=== PATIENT | female | born 1965 | race Caucasian/White ===

== ENCOUNTER 2016-09-21 16:41 | Emergency (ER) | payer OTHER ==
[~2016-09-21] VITALS: Ht 157.5 cm; Wt 129.3 kg
[~2016-09-21 16:41] MED LIST: ASPI32ECTA PO; ATOR1TAB18 PO; CORE12.5 PO; ELIQ5TAB PO; FERR32TA PO; INSUDET SC; LISI10TA4 PO; MACR100C3 PO; MAPA325T2 PO; METF500T PO; NITR4TASL SL; OMEPRAZOLE DR PO; VITA500C10 PO
[2016-09-21] MEDS ORDERED: MORPHINE 10 MG/ML 1ML VIAL IM ONE (18:30)
[2016-09-21] MEDS ORDERED: ADACEL/BOOSTRIX VACCINE (DIPHTH/PERTUSS/ACELL/TETANUS)0.5ML SYR (90715) IM ONE (18:30)
[2016-09-21] MEDS ORDERED: LIDOCAINE 1% MDV 20ML VIAL SC ONE (18:45)
[2016-09-21] MEDS ORDERED: DERMABOND TOPICAL SKIN ADHESIVE TOP ONE (19:00)
[2016-09-21 19:24] VITALS: BP 188/86
== END 2016-09-21 19:30 | disposition home or self-care (01) ==
LOC: M ED 17:44
DX: S61.216A Laceration without foreign body of right little finger without damage to nail, initial encounter (principal); W26.0XXA Contact with knife, initial encounter; Y92.098 Other place in other non-institutional residence as the place of occurrence of the external cause; Y93.89 Activity, other specified; Y99.8 Other external cause status; E11.9 Type 2 diabetes mellitus without complications; I10 Essential (primary) hypertension; E78.00 Pure hypercholesterolemia, unspecified; K21.9 Gastro-esophageal reflux disease without esophagitis; Z87.891 Personal history of nicotine dependence; Z88.8 Allergy status to other drugs, medicaments and biological substances; Z79.899 Other long term (current) drug therapy; Z79.82 Long term (current) use of aspirin; Z79.84 Long term (current) use of oral hypoglycemic drugs

== ENCOUNTER 2017-09-07 16:30 | Emergency (ER) | payer MEDICAID, OTHER ==
[2017-09-07] MEDS: NITROGLYCERIN 0.4 MG SUBL TABLET SL ×6 (17:06→17:19)
[2017-09-07] MEDS: ONDANSETRON 4MG/2ML VIAL (J2405) IV ×2 (17:07)
[2017-09-07 17:12] LABS: BASO # 0.1 10^3/uL (0.0-0.2); BASO % 0.5 % (0.0-1.0); EOS # 0.1 10^3/uL (0.0-0.50); EOS % 0.6 % (0.0-3.0); HEMATOCRIT 39.1 % (36.0-47.0); HEMOGLOBIN 13.9 g/dl (12.0-16.0); IMMATURE GRANULOCYTE % 0.4 % (0-3.0); LYMPH # 1.6 10^3/uL (1.5-4.5); LYMPH % 11.3 % (24.0-44.0); MEAN CORPUSCULAR HEMOGLOBIN 31.6 pg (27.0-33.0); MEAN CORPUSCULAR HGB CONC 35.5 g/dl (32.0-36.5); MEAN CORPUSCULAR VOLUME 88.9 fl (80.0-96.0); MONO # 0.7 10^3/uL (0.0-0.8); MONO % 5.2 % (0.0-5.0); NEUTROPHILS # 11.7 10^3/uL (1.8-7.7); PLATELET COUNT, AUTOMATED 175 10^3/uL (150-450); RED CELL DISTRIBUTION WIDTH 12.2 % (11.5-14.5); WHITE BLOOD COUNT 14.3 10^3/uL (4.0-10.0)
[2017-09-07 17:22] LABS: PROTHROMBIN TIME 13.3 SECONDS (12.4-14.5)
[2017-09-07] MEDS ORDERED: GI COCKTAIL 50ML BTL(HYOSCYAMINE/MAALOX/LIDOCAINE VISCOUS)(1:3:1) As Ordered ×2 (17:26)
[2017-09-07] MEDS: GI COCKTAIL 50ML BTL(HYOSCYAMINE/MAALOX/LIDOCAINE VISCOUS)(1:3:1) PO ×2 (17:28)
[2017-09-07 17:31] LABS: ALBUMIN 3.5 GM/DL (3.2-5.2); ALKALINE PHOSPHATASE 104 U/L (45-117); ALT/SGPT 27 U/L (12-78); ANION GAP 8 MEQ/L (8-16); AST/SGOT 7 U/L (7-37); BILIRUBIN,DIRECT < 0.1 MG/DL (0.0-0.2); BILIRUBIN,TOTAL 0.4 MG/DL (0.2-1.0); BLOOD UREA NITROGEN 18 MG/DL (7-18); CALCIUM LEVEL 8.6 MG/DL (8.5-10.1); CARBON DIOXIDE LEVEL 26 MEQ/L (21-32); CHLORIDE LEVEL 100 MEQ/L (98-107); CPK CREATINE PHOSPHOKINASE 97 U/L (26-192); GLOMERULAR FILTRATION RATE > 60.0 (>51); POTASSIUM SERUM 3.7 MEQ/L (3.5-5.1); SODIUM LEVEL 134 MEQ/L (136-145); TROPONIN I < 0.02 NG/ML (< 0.10)
[2017-09-07 17:37] LABS: CK-MB VALUE MASS 2.5 NG/ML (0.0-3.6); MB/CK RELATIVE INDEX 2.57 (< OR =4); NT-PRO BNP 515 PG/ML (<125)
[2017-09-07 17:46] LABS: GLUCOSE, FASTING 406 MG/DL (70-100)
[2017-09-07] MEDS: NS 1,000 ML IV ×2 (18:00)
[2017-09-07] MEDS ORDERED: ISOVUE-370 76% 100ML VIAL (Q9967) As Ordered ×2 (18:04)
[2017-09-07] MEDS: MORPHINE 4 MG/ML 1ML VIAL (J2270) IV ×4 (18:09→19:09)
[2017-09-07 21:13] LABS: CK-MB VALUE MASS 1.6 NG/ML (0.0-3.6); CPK CREATINE PHOSPHOKINASE 84 U/L (26-192); TROPONIN I < 0.02 NG/ML (< 0.10)
[2017-09-07 23:34] LABS: CK-MB VALUE MASS 1.4 NG/ML (0.0-3.6); CPK CREATINE PHOSPHOKINASE 81 U/L (26-192); MB/CK RELATIVE INDEX 1.72 (< OR =4); TROPONIN I < 0.02 NG/ML (< 0.10)
== END 2017-09-08 00:25 | disposition home or self-care (01) ==
LOC: M ED 09-08 00:25
DX: R07.89 Other chest pain (principal); R06.02 Shortness of breath; E11.9 Type 2 diabetes mellitus without complications; I10 Essential (primary) hypertension; I25.10 Atherosclerotic heart disease of native coronary artery without angina pectoris; E78.5 Hyperlipidemia, unspecified; I25.2 Old myocardial infarction; Z82.49 Family history of ischemic heart disease and other diseases of the circulatory system; Z86.711 Personal history of pulmonary embolism; Z79.899 Other long term (current) drug therapy; Z79.84 Long term (current) use of oral hypoglycemic drugs; Z79.82 Long term (current) use of aspirin; Z88.8 Allergy status to other drugs, medicaments and biological substances; Z87.891 Personal history of nicotine dependence
CPT/HCPCS: J2270

== ENCOUNTER 2017-09-12 12:12 | Emergency (ER) | payer OTHER, MEDICAID | END 2017-09-12 15:48 | disposition home or self-care (01) | LOC: M ED 12:12 | DX: J02.8 Acute pharyngitis due to other specified organisms (principal); H10.023 Other mucopurulent conjunctivitis, bilateral; H92.02 Otalgia, left ear; E11.9 Type 2 diabetes mellitus without complications; I10 Essential (primary) hypertension; Z95.1 Presence of aortocoronary bypass graft; Z87.891 Personal history of nicotine dependence; Z88.8 Allergy status to other drugs, medicaments and biological substances; Z79.899 Other long term (current) drug therapy; Z79.82 Long term (current) use of aspirin; Z79.84 Long term (current) use of oral hypoglycemic drugs | CPT/HCPCS: 87880 ==

== ENCOUNTER 2018-04-09 13:02 | Emergency (ER) | payer OTHER ==
[2018-04-09 13:30] LABS: BASO # 0.1 10^3/uL (0.0-0.2); EOS # 0.2 10^3/uL (0.0-0.50); EOS % 2.1 % (0.0-3.0); HEMATOCRIT 40.5 % (36.0-47.0); HEMOGLOBIN 13.8 g/dl (12.0-15.5); IMMATURE GRANULOCYTE % 0.4 % (0-3.0); LYMPH # 1.9 10^3/uL (1.5-4.5); LYMPH % 20.9 % (24.0-44.0); MEAN CORPUSCULAR HGB CONC 34.1 g/dl (32.0-36.5); MONO # 0.6 10^3/uL (0.0-0.8); NEUTROPHILS # 6.4 10^3/uL (1.8-7.7); NEUTROPHILS % 69.6 % (36.0-66.0); PLATELET COUNT, AUTOMATED 194 10^3/uL (150-450); RED BLOOD COUNT 4.31 10^6/uL (4.00-5.40); RED CELL DISTRIBUTION WIDTH 12.4 % (11.5-14.5); WHITE BLOOD COUNT 9.2 10^3/uL (4.0-10.0)
[2018-04-09 13:54] LABS: ANION GAP 7 MEQ/L (8-16); BLOOD UREA NITROGEN 20 MG/DL (7-18); CARBON DIOXIDE LEVEL 28 MEQ/L (21-32); CHLORIDE LEVEL 102 MEQ/L (98-107); CPK CREATINE PHOSPHOKINASE 103 U/L (26-192); CREATININE FOR GFR 0.82 MG/DL (0.55-1.30); GLOMERULAR FILTRATION RATE > 60.0 (>51); GLUCOSE, FASTING 342 MG/DL (70-100); MB/CK RELATIVE INDEX 2.72 (< OR =4); POTASSIUM SERUM 4.1 MEQ/L (3.5-5.1); SODIUM LEVEL 137 MEQ/L (136-145); TROPONIN I < 0.02 NG/ML (< 0.10)
[2018-04-09] MEDS: ASPIRIN 325 MG TAB PO (14:04)
[2018-04-09] MEDS: GI COCKTAIL 50ML BTL(HYOSCYAMINE/MAALOX/LIDOCAINE VISCOUS)(1:3:1) PO (14:04)
== END 2018-04-09 14:46 | disposition home or self-care (01) ==
LOC: M ED 13:02
DX: R09.1 Pleurisy (principal); I51.9 Heart disease, unspecified; E11.9 Type 2 diabetes mellitus without complications; I10 Essential (primary) hypertension; E78.5 Hyperlipidemia, unspecified; Z95.1 Presence of aortocoronary bypass graft; Z87.891 Personal history of nicotine dependence; Z82.49 Family history of ischemic heart disease and other diseases of the circulatory system; I51.7 Cardiomegaly; Z98.890 Other specified postprocedural states; Z79.82 Long term (current) use of aspirin; Z79.84 Long term (current) use of oral hypoglycemic drugs; Z79.899 Other long term (current) drug therapy; Z88.6 Allergy status to analgesic agent; Z88.8 Allergy status to other drugs, medicaments and biological substances
CPT/HCPCS: 71045

== ENCOUNTER → 2018-04-09 | Outpatient (REF) | payer OTHER, MEDICAID ==
[2018-04-09 14:34] LABS: APPEARANCE, URINE HAZY (CLEAR); BACTERIA, URINE AUTO 1+ (NEGATIVE); BILIRUBIN, URINE AUTO NEGATIVE (NEGATIVE); BLOOD, URINE BLOOD 1+ (NEGATIVE); COLOR, URINE YELLOW (YELLOW); GLUCOSE, URINE (UA) AUTO 3+ mg/dL (NEGATIVE); KETONE, URINE AUTO NEGATIVE (NEGATIVE); LEUKOCYTE ESTERASE, URINE AUTO 2+ (NEGATIVE); NITRITE, URINE AUTO NEGATIVE (NEGATIVE); PROTEIN, URINE AUTO NEGATIVE (NEGATIVE); RBC, URINE AUTO 1 /HPF (0-3); SPECIFIC GRAVITY URINE AUTO 1.024 (1.002-1.035); SQUAMOUS EPITHELIAL CELL UR AU 2 /HPF (0-6); UROBILINOGEN, URINE AUTO 0.2 mg/dL (0.0-2.0); WBC, URINE AUTO TNTC /HPF (0-3)
[2018-04-09 18:25] LABS: CHLAMYDIA DNA AMPLIFICATION NEGATIVE (NEGATIVE); GC DNA AMPLIFICATION NEGATIVE (NEGATIVE)
== END ==
LOC: M LAB REF 13:33
DX: R30.0 Dysuria (principal)
CPT/HCPCS: 81001

== ENCOUNTER → 2018-04-09 | Outpatient (REF) | payer OTHER, MEDICAID ==
[2018-04-09 14:44] LABS: ESTIMATED AVERAGE GLUCOSE 260 MG/DL (60-110); HEMOGLOBIN A1c 10.7 %
[2018-04-09 15:23] LABS: ALBUMIN 3.6 GM/DL (3.2-5.2); ALBUMIN/GLOBULIN RATIO 1.09 (1.00-1.93); ALKALINE PHOSPHATASE 115 U/L (45-117); ALT/SGPT 28 U/L (12-78); ANION GAP 9 MEQ/L (8-16); AST/SGOT 14 U/L (7-37); BILIRUBIN,TOTAL 0.5 MG/DL (0.2-1.0); BLOOD UREA NITROGEN 23 MG/DL (7-18); CARBON DIOXIDE LEVEL 26 MEQ/L (21-32); CHLORIDE LEVEL 101 MEQ/L (98-107); CHOLESTEROL LEVEL 150 MG/DL (<200); CHOLESTEROL RISK RATIO 4.687 (<5); GLOMERULAR FILTRATION RATE > 60.0 (>51); GLUCOSE, FASTING 385 MG/DL (70-100); HDL CHOLESTEROL 32 MG/DL (>40); LDL CHOLESTEROL 66 MG/DL (<100); NON-HDL-C 118 MG/DL; POTASSIUM SERUM 4.7 MEQ/L (3.5-5.1); SODIUM LEVEL 136 MEQ/L (136-145); TOTAL PROTEIN 6.9 GM/DL (6.4-8.2); TRIGLYCERIDES LEVEL 258 MG/DL (<150)
== END ==
LOC: M LAB REF 13:40
DX: E11.65 Type 2 diabetes mellitus with hyperglycemia (principal); B37.2 Candidiasis of skin and nail; B37.3 Candidiasis of vulva and vagina

== ENCOUNTER → 2018-09-05 | Outpatient (REF) | payer OTHER, MEDICAID ==
[~2018-09-05] MED LIST changes: +ASPI325T25 PO; -ASPI32ECTA PO; -ATOR1TAB18 PO; +ATOR80TA59 PO; +ERYT5OPO OU; +FLON1SPR; -MACR100C3 PO; +MACR100C43 PO; -METF500T PO; +METF500T13 PO; +NAPR-50 PO; +NEUR300C PO
[2018-09-05 13:48] LABS: INFLUENZA A AMPLIFICATION NEGATIVE (NEGATIVE); INFLUENZA B AMPLIFICATION NEGATIVE (NEGATIVE)
== END ==
LOC: M LAB REF 12:58
PROVIDERS: ATTEND Physician Assistant
DX: J11.1 Influenza due to unidentified influenza virus with other respiratory manifestations (principal)

== ENCOUNTER 2018-09-11 19:49 | Emergency (ER) | payer MEDICAID, OTHER ==
[~2018-09-11] VITALS: Ht 157.5 cm; Wt 118.6 kg
[2018-09-11 20:28] LABS: HEMATOCRIT 43.2 % (36.0-47.0); MEAN CORPUSCULAR HEMOGLOBIN 31.7 pg (27.0-33.0); MEAN CORPUSCULAR HGB CONC 34.7 g/dl (32.0-36.5); MEAN CORPUSCULAR VOLUME 91.3 fl (80.0-96.0); PLATELET COUNT, AUTOMATED 189 10^3/uL (150-450); RED BLOOD COUNT 4.73 10^6/uL (4.00-5.40); WHITE BLOOD COUNT 7.8 10^3/uL (4.0-10.0)
[2018-09-11] MEDS ORDERED: MORPHINE 2 MG/ML 1ML SYRINGE (J2270) IV PRN (20:30)
[2018-09-11 20:53] LABS: ATYPICAL LYMPH 2 % (0-5); EOSINOPHILS 1 % (0-5); LYMPHOCYTES 30 % (16-52); MONOCYTES 11 % (0-8); NEUTROPHILS 56 % (35-75); PLATELET ESTIMATE NORMAL (NORMAL)
[2018-09-11 21:05] LABS: INFLUENZA A AMPLIFICATION NEGATIVE (NEGATIVE); INFLUENZA B AMPLIFICATION NEGATIVE (NEGATIVE)
[2018-09-11 21:06] LABS: ALBUMIN 3.6 GM/DL (3.2-5.2); ALT/SGPT 33 U/L (12-78); BILIRUBIN,DIRECT < 0.1 MG/DL (0.0-0.2); BILIRUBIN,TOTAL 0.4 MG/DL (0.2-1.0); BLOOD UREA NITROGEN 20 MG/DL (7-18); CALCIUM LEVEL 8.9 MG/DL (8.5-10.1); CARBON DIOXIDE LEVEL 29 MEQ/L (21-32); CHLORIDE LEVEL 101 MEQ/L (98-107); CPK CREATINE PHOSPHOKINASE 82 U/L (26-192); CREATININE FOR GFR 0.76 MG/DL (0.55-1.30); GLOMERULAR FILTRATION RATE > 60.0 (>51); GLUCOSE, FASTING 245 MG/DL (70-100); MB/CK RELATIVE INDEX 2.56 (< OR =4); POTASSIUM SERUM 4.1 MEQ/L (3.5-5.1); SODIUM LEVEL 137 MEQ/L (136-145); TOTAL PROTEIN 7.1 GM/DL (6.4-8.2); TROPONIN I < 0.02 NG/ML (< 0.10)
--- NOTE | 2018-09-11 21:10 | REP ---
Clinical: Acute chest pain. Technique: PA and lateral. Comparison: 04/09/2018. Findings: Subtle lingular opacity suggests atelectasis/early infiltrate. Remainder of lung swift are clear. No effusion. No pneumothorax. Mediastinum and cardiac silhouette are stable. Impression: Subtle lingular opacity suggests atelectasis/early infiltrate. Electronically Signed by Girish Zaldivar MD 09/11/2018 09:01 P
[2018-09-11] MEDS ORDERED: AZITHROMYCIN 250 MG TAB PO ONE (22:00)
[2018-09-11] MEDS ORDERED: cefTRIAXone SOD 1 GM in D5W MINI-BAG PLUS 50 ML IV ONE (22:00)
[2018-09-11] MEDS ORDERED: KETOROLAC 30 MG/ML VIAL (J1885) IV ONE (22:00)
[2018-09-11] MEDS ORDERED: AZIT-12 PO (23:22)
[2018-09-11] MEDS ORDERED: CEFD300CAP PO (23:22)
[2018-09-11] MEDS ORDERED: IBUP-1114 PO (23:22)
[2018-09-11 23:50] VITALS: BP 162/73
--- NOTE | 2018-09-12 20:45 | ECGEPIP ---
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
== END 2018-09-11 23:58 | disposition home or self-care (01) ==
LOC: M ED 19:49
DX: J18.9 Pneumonia, unspecified organism (principal); R11.0 Nausea; I11.9 Hypertensive heart disease without heart failure; E78.5 Hyperlipidemia, unspecified; E11.9 Type 2 diabetes mellitus without complications; Z95.1 Presence of aortocoronary bypass graft; Z87.891 Personal history of nicotine dependence; Z88.8 Allergy status to other drugs, medicaments and biological substances; Z79.899 Other long term (current) drug therapy; Z79.82 Long term (current) use of aspirin; Z79.84 Long term (current) use of oral hypoglycemic drugs
CPT/HCPCS: 71046; 80048; 80076; 82550; 82553; 85025; 87502; 93005; 93041; 94760; 96374; 96375; 99285; J0696; J1885; J2270

== ENCOUNTER 2018-12-09 17:43 | Emergency (ER) | payer MEDICAID, OTHER, SELFPAY ==
[~2018-12-09] VITALS: Ht 157.5 cm; Wt 120.5 kg
[~2018-12-09 17:43] MED LIST changes: +ASPI-255 PO; -ASPI325T25 PO; +AZIT-12 PO; +CEFD300CAP PO; +ERYT1OIN26 OU; -ERYT5OPO OU; +IBUP-1114 PO; -NAPR-50 PO; +NAPR-837 PO
[2018-12-09] MEDS ORDERED: CIPROFLOXACIN 500 MG TAB PO ONE (19:30)
[2018-12-09] MEDS ORDERED: KETOROLAC TROMETHAMINE 10 MG TAB PO ONE (19:30)
[2018-12-09] MEDS ORDERED: FLUCONAZOLE 50MG TABLET PO ONE (19:30)
[2018-12-09] MEDS ORDERED: FLUC150T PO (19:33)
[2018-12-09] MEDS ORDERED: CIPR-249 PO (19:33)
[2018-12-09 19:43] VITALS: BP 150/78
== END 2018-12-09 19:45 | disposition home or self-care (01) ==
LOC: M ED 17:43
DX: N39.0 Urinary tract infection, site not specified (principal); J01.90 Acute sinusitis, unspecified; B37.3 Candidiasis of vulva and vagina; E11.9 Type 2 diabetes mellitus without complications; I25.2 Old myocardial infarction; I10 Essential (primary) hypertension; E78.5 Hyperlipidemia, unspecified; Z79.82 Long term (current) use of aspirin; Z79.84 Long term (current) use of oral hypoglycemic drugs; Z79.899 Other long term (current) drug therapy; Z88.8 Allergy status to other drugs, medicaments and biological substances

== ENCOUNTER 2022-09-25 17:08 | Emergency (ER) | payer MEDICAID, OTHER ==
[~2022-09-25] VITALS: Ht 157.5 cm; Wt 90.0 kg
[~2022-09-25 17:08] MED LIST changes: +CIPR-249 PO; -ERYT1OIN26 OU; +ERYT5OIN25 OU; +FLUC150T9 PO; +LISI10TA22 PO; -LISI10TA4 PO; -MAPA325T2 PO; +MAPA325T8 PO
[2022-09-25] MEDS ORDERED: GI COCKTAIL 50ML BTL(HYOSCYAMINE/MAALOX/LIDOCAINE VISCOUS)(1:3:1) PO ONE (17:35)
[2022-09-25 17:54] LABS: BASO # 0.1 10^3/uL (0.0-0.2); BASO % 0.7 % (0.0-1.0); EOS # 0.1 10^3/uL (0.0-0.5); EOS % 0.5 % (0.0-3.0); HEMATOCRIT 43.6 % (36.0-47.0); HEMOGLOBIN 14.9 g/dl (12.0-15.5); LYMPH # 2.2 10^3/uL (1.5-5.0); LYMPH % 19.1 % (24.0-44.0); MEAN CORPUSCULAR HEMOGLOBIN 31.6 pg (27.0-33.0); MEAN CORPUSCULAR HGB CONC 34.2 g/dl (32.0-36.5); MEAN CORPUSCULAR VOLUME 92.6 fl (80.0-96.0); MONO # 0.6 10^3/uL (0.0-0.8); MONO % 5.4 % (2.0-8.0); NEUTROPHILS # 8.5 10^3/uL (1.5-8.5); NEUTROPHILS % 73.9 % (36.0-66.0); PLATELET COUNT, AUTOMATED 194 10^3/uL (150-450); RED BLOOD COUNT 4.71 10^6/uL (4.00-5.40); WHITE BLOOD COUNT 11.6 10^3/uL (4.0-10.0)
[2022-09-25 18:05] LABS: INR 0.93; PROTHROMBIN TIME 12.7 SECONDS (12.5-14.5)
[2022-09-25 18:17] LABS: LIPASE 27 U/L (12-53)
[2022-09-25 18:19] LABS: CPK CREATINE PHOSPHOKINASE 79 U/L (34-145)
[2022-09-25 18:22] LABS: ALBUMIN 3.4 G/DL (3.2-5.2); ALKALINE PHOSPHATASE 102 U/L (46-116); ALT/SGPT 15 U/L (7.0-40); AST/SGOT 16 U/L (<34); BILIRUBIN,DIRECT < 0.1 MG/DL (<0.4); BILIRUBIN,TOTAL 0.4 MG/DL (0.3-1.2); BLOOD UREA NITROGEN 15 MG/DL (9-23); CALCIUM LEVEL 8.8 MG/DL (8.5-10.1); CARBON DIOXIDE LEVEL 26 MMOL/L (20-31); CHLORIDE LEVEL 103 MMOL/L (98-107); CK-MB VALUE MASS 3.1 NG/ML (<3.6); CREATININE FOR GFR 0.59 MG/DL (0.55-1.30); GLOMERULAR FILTRATION RATE > 60.0 (>51); GLUCOSE, FASTING 310 MG/DL (60-100); MB/CK RELATIVE INDEX 3.92 (< OR =4); SODIUM LEVEL 135 MMOL/L (136-145); TOTAL PROTEIN 6.5 G/DL (5.7-8.2)
[2022-09-25] MEDS ORDERED: HEPARIN SOD (PORCINE) 5000UNITS/ML 1ML VIAL/SYRINGE IV ONE (18:45)
[2022-09-25] MEDS ORDERED: HEPARIN DRIP 25,000 UNITS in IV 1 EA IV SCH (18:45)
[2022-09-25] MEDS ORDERED: NITROGLYCERIN 0.4MG SUBL TABLET SL PRN (18:45)
[2022-09-25 18:51] LABS: PARTIAL THROMBOPLASTIN TIME 25.6 SECONDS (24.8-34.2)
[2022-09-25] MEDS ORDERED: CLOPIDOGREL 300 MG TAB (PLAVIX) PO STA (19:01)
[2022-09-25 19:29] LABS: MB/CK RELATIVE INDEX 3.7 (< OR =4)
[2022-09-25 19:42] VITALS: BP 125/70
[2022-09-25 20:20] LABS: RSV AMPLIFICATION NEGATIVE (NEGATIVE)
== END 2022-09-25 19:59 | disposition short-term general hospital (02) ==
LOC: M ED 17:08
DX: I21.4 Non-ST elevation (NSTEMI) myocardial infarction (principal); R94.31 Abnormal electrocardiogram [ECG] [EKG]; I25.2 Old myocardial infarction; E11.9 Type 2 diabetes mellitus without complications; I10 Essential (primary) hypertension; F12.10 Cannabis abuse, uncomplicated; Z88.8 Allergy status to other drugs, medicaments and biological substances; Z79.02 Long term (current) use of antithrombotics/antiplatelets; Z79.811 Long term (current) use of aromatase inhibitors; Z79.4 Long term (current) use of insulin; Z79.899 Other long term (current) drug therapy
CPT/HCPCS: 71045; 80048; 80076; 82550; 82553; 83690; 85025; 85610; 85730; 87631; 93005; 93041; 94760; 96365; 96375; 99285; J1644

== ENCOUNTER → 2022-09-30 | Outpatient (REF) | payer OTHER ==
[2022-09-30 17:45] LABS: CREATININE, URINE 39.4 MG/DL
== END ==
LOC: M LAB REF 16:18
PROVIDERS: ATTEND Physician Assistant
DX: E11.65 Type 2 diabetes mellitus with hyperglycemia (principal); E11.41 Type 2 diabetes mellitus with diabetic mononeuropathy

== ENCOUNTER → 2022-10-05 | Outpatient (CLI) | payer OTHER | LOC: M RAD 09:42 | PROVIDERS: ATTEND Physician Assistant | DX: R23.0 Cyanosis (principal) ==

== ENCOUNTER → 2022-10-13 | Outpatient (CLI) | payer OTHER ==
[~2022-10-13] MED LIST changes: +GASTROGRAFIN SOLUTION 30ML As Ordered ONE
== END ==
LOC: M RAD 09:51
PROVIDERS: ATTEND Physician Assistant
DX: K43.9 Ventral hernia without obstruction or gangrene (principal)
CPT/HCPCS: 74177; Q9963

== ENCOUNTER 2023-09-13 11:46 | Emergency (ER) | payer OTHER ==
[~2023-09-13] VITALS: Ht 157.5 cm; Wt 87.2 kg
[~2023-09-13 11:46] MED LIST changes: -GASTROGRAFIN SOLUTION 30ML As Ordered ONE
[2023-09-13] MEDS ORDERED: LISI20TA33 PO (12:03)
[2023-09-13] MEDS ORDERED: ASPI-226 PO (12:03)
[2023-09-13 12:34] LABS: BASO # 0.1 10^3/uL (0.0-0.2); BASO % 0.7 % (0.0-1.0); EOS % 0.5 % (0.0-3.0); HEMATOCRIT 43.1 % (36.0-47.0); HEMOGLOBIN 14.9 g/dl (12.0-15.5); LYMPH # 1.7 10^3/uL (1.5-5.0); LYMPH % 21.6 % (24.0-44.0); MEAN CORPUSCULAR HEMOGLOBIN 32.3 pg (27.0-33.0); MEAN CORPUSCULAR HGB CONC 34.6 g/dl (32.0-36.5); MEAN CORPUSCULAR VOLUME 93.3 fl (80.0-96.0); MONO # 0.4 10^3/uL (0.0-0.8); MONO % 5.5 % (2.0-8.0); NEUTROPHILS # 5.8 10^3/uL (1.5-8.5); NEUTROPHILS % 71.6 % (36.0-66.0); PLATELET COUNT, AUTOMATED 187 10^3/uL (150-450); RED BLOOD COUNT 4.62 10^6/uL (4.00-5.40)
[2023-09-13 13:00] LABS: CK-MB VALUE MASS 1.6 NG/ML (<3.6)
[2023-09-13 13:01] LABS: BLOOD UREA NITROGEN 16 MG/DL (9-23); CALCIUM LEVEL 9.3 MG/DL (8.5-10.1); CARBON DIOXIDE LEVEL 30 MMOL/L (20-31); CHLORIDE LEVEL 106 MMOL/L (98-107); CPK CREATINE PHOSPHOKINASE 64 U/L (34-145); CREATININE FOR GFR 0.62 MG/DL (0.55-1.30); GLOMERULAR FILTRATION RATE > 60.0 (>51); GLUCOSE, FASTING 245 MG/DL (60-100); POTASSIUM SERUM 4.4 MMOL/L (3.5-5.1); SODIUM LEVEL 139 MMOL/L (136-145)
[2023-09-13 14:17] LABS: CK-MB VALUE MASS 1.5 NG/ML (<3.6)
[2023-09-13] MEDS ORDERED: BRIL90TA PO (14:38)
[2023-09-13] MEDS ORDERED: GABA-1171 PO (14:38)
[2023-09-13] MEDS ORDERED: METO1TAB32 PO (14:38)
[2023-09-13] MEDS ORDERED: OMEP-173 PO (14:38)
[2023-09-13] MEDS ORDERED: METF750T36 PO (14:38)
[2023-09-13 14:42] LABS: MB/CK RELATIVE INDEX 2.38 (< OR =4)
[2023-09-13] MEDS ORDERED: HOME MED LIST COMPLETE! XX SCH (15:00)
[2023-09-13] MEDS ORDERED: ISOVUE-370 76% 100ML VIAL As Ordered ONE (15:03)
[2023-09-13 16:16] VITALS: BP 154/65; TEMP 98.2; O2SAT 96
== END 2023-09-13 16:30 | disposition home or self-care (01) ==
LOC: EDBD 11:46 → M ED 11:46
DX: R07.9 Chest pain, unspecified (principal); I45.4 Nonspecific intraventricular block; E11.9 Type 2 diabetes mellitus without complications; I10 Essential (primary) hypertension; E78.5 Hyperlipidemia, unspecified; Z98.84 Bariatric surgery status; Z86.79 Personal history of other diseases of the circulatory system; Z88.8 Allergy status to other drugs, medicaments and biological substances; Z79.899 Other long term (current) drug therapy; Z79.02 Long term (current) use of antithrombotics/antiplatelets; Z79.82 Long term (current) use of aspirin; Z79.811 Long term (current) use of aromatase inhibitors; Z79.4 Long term (current) use of insulin; Z79.83 Long term (current) use of bisphosphonates
CPT/HCPCS: 36415; 71045; 71275; 80048; 82550; 82553; 83880; 85025; 93005; 93041; 94760; 99285; Q9967

== ENCOUNTER 2024-06-06 11:52 | Emergency (ER) | payer OTHER ==
[~2024-06-06] VITALS: Ht 157.5 cm; Wt 89.5 kg
[~2024-06-06 11:52] MED LIST changes: +ASPI-226 PO; +BRIL90TA PO; +GABA-1171 PO; +LISI20TA33 PO; +METF750T36 PO; +METO1TAB32 PO; +OMEP-173 PO
[2024-06-06 12:36] LABS: BASO # 0.1 10^3/uL (0.0-0.2); BASO % 0.5 % (0.0-1.0); EOS % 0.2 % (0.0-3.0); HEMATOCRIT 40.4 % (36.0-47.0); HEMOGLOBIN 13.8 g/dl (12.0-15.5); LYMPH # 1.5 10^3/uL (1.5-5.0); LYMPH % 15.5 % (24.0-44.0); MEAN CORPUSCULAR HGB CONC 34.2 g/dl (32.0-36.5); MEAN CORPUSCULAR VOLUME 93.7 fl (80.0-96.0); MONO # 0.6 10^3/uL (0.0-0.8); MONO % 6.5 % (2.0-8.0); NEUTROPHILS # 7.6 10^3/uL (1.5-8.5); NEUTROPHILS % 76.9 % (36.0-66.0); PLATELET COUNT, AUTOMATED 178 10^3/uL (150-450); RED BLOOD COUNT 4.31 10^6/uL (4.00-5.40); WHITE BLOOD COUNT 9.9 10^3/uL (4.0-10.0)
[2024-06-06 12:51] LABS: INR 1.04; PROTHROMBIN TIME 13.9 SECONDS (12.5-14.5)
[2024-06-06 13:03] LABS: CK-MB VALUE MASS < 1.0 NG/ML (<3.6)
[2024-06-06 13:05] LABS: ALKALINE PHOSPHATASE 113 U/L (35-104); ALT/SGPT 41 U/L (7.0-40); AST/SGOT 10 U/L (<34); BILIRUBIN,DIRECT 0.3 MG/DL (<0.4); BILIRUBIN,TOTAL 0.9 MG/DL (0.3-1.2); BLOOD UREA NITROGEN 11 MG/DL (9-23); CARBON DIOXIDE LEVEL 25 MMOL/L (20-31); CHLORIDE LEVEL 105 MMOL/L (98-107); CREATININE FOR GFR 0.58 MG/DL (0.55-1.30); GLOMERULAR FILTRATION RATE > 60.0 (>51); GLUCOSE, FASTING 304 MG/DL (60-100); SODIUM LEVEL 137 MMOL/L (136-145); TOTAL PROTEIN 6.5 G/DL (5.7-8.2)
[2024-06-06 13:07] LABS: CPK CREATINE PHOSPHOKINASE 39 U/L (34-145); MB/CK RELATIVE INDEX 2.56 (< OR =4)
[2024-06-06] MEDS ORDERED: ISOVUE-370 76% 100ML VIAL As Ordered ONE (13:24)
[2024-06-06] MEDS ORDERED: NITR0.4S14 SL (13:35)
[2024-06-06] MEDS ORDERED: HOME MED LIST COMPLETE! XX SCH (13:40)
[2024-06-06 14:22] LABS: CK-MB VALUE MASS 1.1 NG/ML (<3.6)
[2024-06-06 14:23] LABS: MB/CK RELATIVE INDEX 3.33 (< OR =4)
[2024-06-06 14:39] LABS: PARTIAL THROMBOPLASTIN TIME 28.3 SECONDS (24.8-34.2)
[2024-06-06 14:57] VITALS: BP 141/82
[2024-06-06] MEDS: ASPIRIN 81MG CHEW TABLET PO ONE (14:57)
[2024-06-06] MEDS: NITROGLYCERIN 2% OINT 1 GM *U/D* PKT TOP ONE (14:57)
[2024-06-06] MEDS: HEPARIN DRIP 25,000 UNITS in IV 1 EA IV SCH (16:00)
[2024-06-06] MEDS: HEPARIN SOD (PORCINE) 5000UNITS/ML 1ML VIAL/SYRINGE IV ONE (16:00)
[2024-06-06 17:04] VITALS: BP 120/74; TEMP 98.1; O2SAT 93
== END 2024-06-06 17:08 | disposition short-term general hospital (02) ==
LOC: M ED 11:52
DX: I20.0 Unstable angina (principal); I45.4 Nonspecific intraventricular block; E11.9 Type 2 diabetes mellitus without complications; I25.2 Old myocardial infarction; I10 Essential (primary) hypertension; J44.9 Chronic obstructive pulmonary disease, unspecified; E78.5 Hyperlipidemia, unspecified; Z88.8 Allergy status to other drugs, medicaments and biological substances; Z86.711 Personal history of pulmonary embolism; Z86.79 Personal history of other diseases of the circulatory system; Z87.891 Personal history of nicotine dependence; Z79.02 Long term (current) use of antithrombotics/antiplatelets; Z79.811 Long term (current) use of aromatase inhibitors; Z79.4 Long term (current) use of insulin; Z79.899 Other long term (current) drug therapy
CPT/HCPCS: 71045; 71275; 80048; 80076; 82550; 82553; 83880; 84484; 85025; 85610; 85730; 93005; 93041; 93971; 94760; 96374; 99285; Q9967

== ENCOUNTER 2024-07-17 15:24 | Emergency (ER) | payer OTHER ==
[~2024-07-17] VITALS: Ht 157.5 cm; Wt 86.7 kg
[~2024-07-17 15:24] MED LIST changes: +NITR0.4S14 SL
[2024-07-17] MEDS ORDERED: OXYC1TAB23 (15:49)
[2024-07-17] MEDS ORDERED: PANT40TA29 (15:49)
[2024-07-17] MEDS ORDERED: ISOS1TAB36 (15:49)
[2024-07-17] MEDS ORDERED: CARV6.25 (15:49)
[2024-07-17] MEDS ORDERED: LANTINJ4 (15:49)
[2024-07-17] MEDS ORDERED: SPIR-10 (15:49)
[2024-07-17] MEDS ORDERED: CLOP75TA2 (15:49)
[2024-07-17] MEDS ORDERED: ENTR1TAB (15:49)
[2024-07-17] MEDS ORDERED: FARX1TAB3 (15:49)
[2024-07-17 17:08] LABS: BASO # 0.1 10^3/uL (0.0-0.2); BASO % 0.7 % (0.0-1.0); EOS # 0.1 10^3/uL (0.0-0.5); EOS % 1.1 % (0.0-3.0); HEMATOCRIT 41.2 % (36.0-47.0); HEMOGLOBIN 13.9 g/dl (12.0-15.5); LYMPH # 1.8 10^3/uL (1.5-5.0); LYMPH % 16.8 % (24.0-44.0); MEAN CORPUSCULAR HEMOGLOBIN 30.8 pg (27.0-33.0); MEAN CORPUSCULAR HGB CONC 33.7 g/dl (32.0-36.5); MEAN CORPUSCULAR VOLUME 91.2 fl (80.0-96.0); MONO # 0.6 10^3/uL (0.0-0.8); MONO % 5.8 % (2.0-8.0); NEUTROPHILS # 7.9 10^3/uL (1.5-8.5); NEUTROPHILS % 74.4 % (36.0-66.0); PLATELET COUNT, AUTOMATED 208 10^3/uL (150-450); RED BLOOD COUNT 4.52 10^6/uL (4.00-5.40); WHITE BLOOD COUNT 10.6 10^3/uL (4.0-10.0)
[2024-07-17 17:14] LABS: ERYTHROCYTE SEDIMENTATION RATE 21 mm/hr (0-30)
[2024-07-17 17:34] LABS: BLOOD UREA NITROGEN 27 MG/DL (9-23); C REACTIVE PROTEIN QUANTITATIV 0.51 MG/DL (<1.0); CALCIUM LEVEL 9.7 MG/DL (8.5-10.1); CARBON DIOXIDE LEVEL 26 MMOL/L (20-31); CHLORIDE LEVEL 105 MMOL/L (98-107); CREATININE FOR GFR 0.64 MG/DL (0.55-1.30); GLOMERULAR FILTRATION RATE > 60.0 (>51); GLUCOSE, FASTING 177 MG/DL (60-100); POTASSIUM SERUM 4.2 MMOL/L (3.5-5.1); SODIUM LEVEL 139 MMOL/L (136-145)
[2024-07-17] MEDS: PIPERACILLIN/TAZOBACTAM SOD 3.375 GM in DEXTROSE 5% (D5W) ADV/MINI-BAG 50 ML IV ONE (20:16)
[2024-07-17] MEDS: VANCOMYCIN/WATER FOR INJ (PEG) 1,750 MG in IV 1 EA IV ONE (21:31)
[2024-07-17] MEDS ORDERED: DOXY-441 PO (22:02)
[2024-07-17] MEDS ORDERED: CIPR-249 PO (22:02)
[2024-07-17] MEDS: NORCO, ANEXSIA 5/325MG TABLET (HYDROcodone/ACETAMINOPHEN) PO ONE (22:37)
[2024-07-17 23:44] VITALS: BP 122/64; TEMP 97.6; O2SAT 98
== END 2024-07-18 00:08 | disposition home or self-care (01) ==
LOC: M ED 15:24
DX: L03.032 Cellulitis of left toe (principal); L97.529 Non-pressure chronic ulcer of other part of left foot with unspecified severity; I70.412 Atherosclerosis of autologous vein bypass graft(s) of the extremities with intermittent claudication, left leg; I10 Essential (primary) hypertension; K21.9 Gastro-esophageal reflux disease without esophagitis; E11.9 Type 2 diabetes mellitus without complications; E78.5 Hyperlipidemia, unspecified; Z88.8 Allergy status to other drugs, medicaments and biological substances; Z79.02 Long term (current) use of antithrombotics/antiplatelets; Z79.4 Long term (current) use of insulin; Z79.2 Long term (current) use of antibiotics; Z79.899 Other long term (current) drug therapy; Z86.79 Personal history of other diseases of the circulatory system; Z87.891 Personal history of nicotine dependence
CPT/HCPCS: 73660; 80048; 83605; 85025; 85652; 86140; 87040; 87070; 87077; 87186; 87205; 93971; 96374; 96375; 99284; J2543; J3372

== ENCOUNTER → 2025-04-07 | Outpatient (CLI) | payer OTHER ==
[~2025-04-07] MED LIST changes: +CARV6.25; +CLOP75TA2; +DOXY-441 PO; +ENTR1TAB; +FARX1TAB3; +ISOS1TAB36; +LANTINJ4; +OXYC1TAB23; +PANT40TA29; +SPIR-10
[2025-04-07 15:23] LABS: ALT/SGPT 32.0 U/L (7.0-40); AST/SGOT 17.0 U/L (<34); CALCIUM LEVEL 8.7 MG/DL (8.3-10.6); CARBON DIOXIDE LEVEL 28.0 MMOL/L (20-31); CHLORIDE LEVEL 103.0 MMOL/L (98-107); CREATININE FOR GFR 0.83 MG/DL (0.55-1.30); GLOMERULAR FILTRATION RATE 80.7 (>45); POTASSIUM SERUM 4.0 MMOL/L (3.5-5.1); SODIUM LEVEL 138.0 MMOL/L (136-145)
== END ==
LOC: M LAB 14:13
PROVIDERS: ATTEND Nurse Practitioner Acute Care
DX: I50.20 Unspecified systolic (congestive) heart failure (principal)

== ENCOUNTER 2025-07-06 15:41 | Inpatient (IN) | payer OTHER ==
[~2025-07-06] VITALS: Ht 157.5 cm; Wt 94.2 kg
[2025-07-06] VITALS (15 sets, daily range): BP systolic 94–132; BP diastolic 52–64; TEMP 97.9; O2SAT 88–99
[~2025-07-06 15:41] MED LIST changes: -CLOP75TA2; +CLOP75TA2 PO; -ENTR1TAB; +ENTR1TAB PO; -FARX1TAB3; +FARX1TAB3 PO; -LANTINJ4; +LANTINJ4 SC; -PANT40TA29; +PANT40TA29 PO
[2025-07-06] MEDS ORDERED: NS (Normal Saline) 0.9% 1,000 ML IV ONE (16:05)
[2025-07-06] MEDS: LIDOCAINE 2% 5 ML JELLY UROJET TOP ONE (16:05)
[2025-07-06 16:15] LABS: BASO # 0.0 10^3/uL (0.0-0.2); BASO % 0.3 % (0.0-1.0); EOS # 0.0 10^3/uL (0.0-0.5); EOS % 0.0 % (0.0-3.0); LYMPH # 0.4 10^3/uL (1.5-5.0); LYMPH % 3.9 % (24.0-44.0); MONO # 0.3 10^3/uL (0.0-0.8); MONO % 2.8 % (2.0-8.0); NEUTROPHILS # 9.8 10^3/uL (1.5-8.5); NEUTROPHILS % 92.6 % (36.0-66.0); PLATELET COUNT, AUTOMATED 158 10^3/uL (150-450)
[2025-07-06] MEDS: NS (Normal Saline) 0.9% 2,560 ML in IV 1 EA IV STA (16:22)
[2025-07-06] MEDS: ACETAMINOPHEN *IV* 1,000 MG in IV 1 EA IV ONE (16:26)
[2025-07-06] MEDS: PIPERACILLIN/TAZOBACTAM SOD 4.5 GM in DEXTROSE 5% (D5W) ADV/MINI-BAG 50 ML IV ONE (16:29)
[2025-07-06 16:39] LABS: INR 1.11
[2025-07-06 16:59] LABS: VENOUS BASE EXCESS 1.9 (-2.0-2.0); VENOUS HCO3 25.8 MMOL/L (23.0-27.0); VENOUS O2 SATURATION 96.1 % (60.0-80.0); VENOUS PARTIAL PRESSURE CO2 38.1 mmHg (38.0-50.0); VENOUS PARTIAL PRESSURE O2 82.1 mmHg (30.0-50.0); VENOUS PH 7.449 UNITS (7.330-7.430); VENOUS STANDARD HCO3 26.1 MMOL/L; VENOUS TOTAL CO2 27.0 MMOL/L (24.0-28.0)
[2025-07-06] MEDS: NOREPINEPHRINE 4MG IN D5 250ML 4 MG in IV 1 EA IV SCH (17:16)
[2025-07-06 17:31] LABS: CPK CREATINE PHOSPHOKINASE 68.0 U/L (34-145)
[2025-07-06 17:32] LABS: ALT/SGPT 27.0 U/L (7.0-40); AST/SGOT 25.0 U/L (<34); CALCIUM LEVEL 8.3 MG/DL (8.3-10.6); CARBON DIOXIDE LEVEL 28.0 MMOL/L (20-31); CHLORIDE LEVEL 97.0 MMOL/L (98-107); CK-MB VALUE MASS 2.1 NG/ML (<3.6); CREATININE FOR GFR 2.48 MG/DL (0.55-1.30); GLOMERULAR FILTRATION RATE 21.7 (>45); MB/CK RELATIVE INDEX 3.08 (< OR =4); POTASSIUM SERUM 4.1 MMOL/L (3.5-5.1); SODIUM LEVEL 136.0 MMOL/L (136-145)
[2025-07-06 17:37] LABS: KETONE, URINE AUTO RFX NEGATIVE (NEGATIVE); LEUKOCYTE ESTERASE UR AUTO RFX 2+ (NEGATIVE); MUCUS, URINE RFX SMALL (NEGATIVE); NITRITE, URINE AUTO RFX NEGATIVE (NEGATIVE); RBC, URINE AUTO RFX 38 /HPF (0-3); SQUAM EPITHELIAL CELL UR AURFX 8 /HPF (0-6); WBC, URINE AUTO RFX TNTC /HPF (0-3)
[2025-07-06 17:47] LABS: CPK CREATINE PHOSPHOKINASE 66.0 U/L (34-145)
[2025-07-06 17:48] LABS: CK-MB VALUE MASS 1.8 NG/ML (<3.6); MB/CK RELATIVE INDEX 2.72 (< OR =4)
[2025-07-06 18:17] LABS: C REACTIVE PROTEIN QUANTITATIV 18.03 MG/DL (<1.0)
[2025-07-06] MEDS: VASOPRESSIN IN 0.9 % NACL 20 UNIT in IV 1 EA IV SCH ×2 (18:33→19:20)
[2025-07-06] MEDS ORDERED: NOREPINEPHRINE 4MG IN D5 250ML 4 MG in IV 1 EA IV SCH (19:20)
[2025-07-06] MEDS ORDERED: GLUCOSE 4 GM CHEW PO PRN (19:20)
[2025-07-06] MEDS ORDERED: GLUCAGON INJ 1 MG VIAL SC PRN (19:20)
[2025-07-06] MEDS ORDERED: DEXTROSE 50% 50 ML SYRINGE IV PRN (19:20)
[2025-07-06] MEDS ORDERED: PIPERACILLIN/TAZOBACTAM SOD 2.25 GM in DEXTROSE 5% (D5W) ADV/MINI-BAG 50 ML IV SCH (19:20)
[2025-07-06] MEDS: INSULIN LISPRO (NovoLOG) PER UNIT SC SCH (21:53)
[2025-07-06] MEDS: VANCOMYCIN HCL 1,500 MG, VIAL MATE ADAPTER 1 EACH in NS 500 ML IV ONE (21:53)
[2025-07-06] MEDS: LEVALBUTEROL 1.25 MG 0.5ML CONCENTRATE NEB NEB PRN (22:12)
[2025-07-06] MEDS ORDERED: SACUBITRIL-VALSARTAN PO (22:40)
[2025-07-06] MEDS ORDERED: ISOS120T7 PO (22:40)
[2025-07-06] MEDS ORDERED: ALBU8.5H INH (22:40)
[2025-07-06] MEDS ORDERED: RANO500T2 PO (22:40)
[2025-07-06] MEDS ORDERED: GABA-1171 PO (22:40)
[2025-07-06] MEDS ORDERED: CARV12.5 PO (22:40)
[2025-07-06] MEDS ORDERED: FURO20TA2 PO (22:40)
[2025-07-06] MEDS ORDERED: HOME MED LIST COMPLETE! XX SCH (22:45)
[2025-07-06] MEDS ORDERED: ACET-683 PO (22:46)
[2025-07-06] MEDS: HEPARIN SOD 5000 UNITS/ML 1 ML VIAL/SYRINGE SC SCH (23:07)
[2025-07-06] MEDS: PIPERACILLIN/TAZOBACTAM SOD 3.375 GM in DEXTROSE 5% (D5W) ADV/MINI-BAG 50 ML IV SCH (23:07)
[2025-07-07] VITALS (56 sets, daily range): BP systolic 78–120; BP diastolic 43–86; TEMP 97–98.9; O2SAT 88–98
[2025-07-07] MEDS: ACETAMINOPHEN *IV* 1,000 MG in IV 1 EA IV PRN (01:19)
[2025-07-07] MEDS: INSULIN LISPRO (NovoLOG) PER UNIT SC SCH (08:31)
[2025-07-07 08:39] LABS: BASO # 0.0 10^3/uL (0.0-0.2); BASO % 0.3 % (0.0-1.0); EOS # 0.0 10^3/uL (0.0-0.5); EOS % 0.0 % (0.0-3.0); LYMPH # 0.3 10^3/uL (1.5-5.0); LYMPH % 4.7 % (24.0-44.0); MONO # 0.4 10^3/uL (0.0-0.8); MONO % 5.8 % (2.0-8.0); NEUTROPHILS # 6.3 10^3/uL (1.5-8.5); NEUTROPHILS % 88.9 % (36.0-66.0)
[2025-07-07 08:40] LABS: PLATELET COUNT, AUTOMATED 90 10^3/uL (150-450)
[2025-07-07 09:01] LABS: CALCIUM LEVEL 8.3 MG/DL (8.3-10.6); CARBON DIOXIDE LEVEL 20.0 MMOL/L (20-31); CHLORIDE LEVEL 105.0 MMOL/L (98-107); CREATININE FOR GFR 1.82 MG/DL (0.55-1.30); GLOMERULAR FILTRATION RATE 31.4 (>45); MAGNESIUM LEVEL 1.8 MG/DL (1.8-2.4); PHOSPHORUS LEVEL 4.1 MG/DL (2.4-5.1); POTASSIUM SERUM 4.0 MMOL/L (3.5-5.1); SODIUM LEVEL 136.0 MMOL/L (136-145)
[2025-07-07] MEDS ORDERED: VANCOMYCIN HCL 1,000 MG, VIAL MATE ADAPTER 1 EACH in NS 250 ML IV SCH (10:00)
[2025-07-07] MEDS: PANTOPRAZOLE 40MG VIAL IV SCH (10:15)
[2025-07-07] MEDS: CLOPIDOGREL 75 MG TAB PO SCH (10:17)
[2025-07-07] MEDS: ATORVASTATIN 20 MG TAB PO SCH (10:17)
[2025-07-07] MEDS: ASPIRIN 81 MG ENTERIC TABLET PO SCH (10:17)
[2025-07-07] MEDS: NYSTATIN 100,000 UNITS/GM TOPICAL PWD 15 GM TOP SCH (11:29)
[2025-07-07] MEDS: AMIODARONE HCL 360 MG in IV 1 EA IV SCH ×2 (12:55→18:52)
[2025-07-07] MEDS: SIMETHICONE 80MG CHEW TAB PO PRN (17:14)
[2025-07-07] MEDS: ACETAMINOPHEN 500 MG TAB PO PRN (17:14)
[2025-07-07] MEDS: GABAPENTIN 300 MG CAP PO SCH (20:25)
[2025-07-07] MEDS: MORPHINE 2 MG/ML 1 ML VIAL IV PRN (20:25)
[2025-07-07] MEDS: ONDANSETRON 4MG/2ML VIAL IV PRN (23:27)
[2025-07-08] VITALS (15 sets, daily range): BP systolic 78–110; BP diastolic 43–70; TEMP 97–98.4; O2SAT 94–97
[2025-07-08 04:20] LABS: BASO # 0.0 10^3/uL (0.0-0.2); BASO % 0.2 % (0.0-1.0); EOS # 0.0 10^3/uL (0.0-0.5); EOS % 0.0 % (0.0-3.0); LYMPH # 0.6 10^3/uL (1.5-5.0); LYMPH % 6.7 % (24.0-44.0); MONO # 0.6 10^3/uL (0.0-0.8); MONO % 7.5 % (2.0-8.0); NEUTROPHILS # 7.1 10^3/uL (1.5-8.5); NEUTROPHILS % 85.1 % (36.0-66.0); PLATELET COUNT, AUTOMATED 106 10^3/uL (150-450)
[2025-07-08 05:22] LABS: CALCIUM LEVEL 7.8 MG/DL (8.3-10.6); CARBON DIOXIDE LEVEL 23.0 MMOL/L (20-31); CHLORIDE LEVEL 104.0 MMOL/L (98-107); CREATININE FOR GFR 1.35 MG/DL (0.55-1.30); GLOMERULAR FILTRATION RATE 45.0 (>45); MAGNESIUM LEVEL 1.9 MG/DL (1.8-2.4); PHOSPHORUS LEVEL 2.1 MG/DL (2.4-5.1); POTASSIUM SERUM 3.6 MMOL/L (3.5-5.1); SODIUM LEVEL 136.0 MMOL/L (136-145)
[2025-07-08] MEDS: APIXABAN 5 MG TAB PO SCH (13:28)
[2025-07-08] MEDS: AMIODARONE 200 MG TAB PO SCH (13:28)
[2025-07-08] MEDS: AMIODARONE HCL 360 MG in IV 1 EA IV SCH (13:31)
[2025-07-08] MEDS: LanTUS (INSULIN GLARGINE INJ) 1 UNITS/0.01 ML SC SCH (20:15)
[2025-07-09] VITALS (8 sets, daily range): BP systolic 100–141; BP diastolic 55–77; TEMP 96.6–98.2; O2SAT 95–99
[2025-07-09 04:28] LABS: BASO # 0.0 10^3/uL (0.0-0.2); BASO % 0.4 % (0.0-1.0); EOS # 0.0 10^3/uL (0.0-0.5); EOS % 0.7 % (0.0-3.0); LYMPH # 1.2 10^3/uL (1.5-5.0); LYMPH % 20.8 % (24.0-44.0); MONO # 0.7 10^3/uL (0.0-0.8); MONO % 12.3 % (2.0-8.0); NEUTROPHILS # 3.7 10^3/uL (1.5-8.5); NEUTROPHILS % 65.3 % (36.0-66.0); PLATELET COUNT, AUTOMATED 100 10^3/uL (150-450)
[2025-07-09 04:49] LABS: CALCIUM LEVEL 8.1 MG/DL (8.3-10.6); CARBON DIOXIDE LEVEL 25.0 MMOL/L (20-31); CHLORIDE LEVEL 103.0 MMOL/L (98-107); CREATININE FOR GFR 0.91 MG/DL (0.55-1.30); GLOMERULAR FILTRATION RATE 72.2 (>45); MAGNESIUM LEVEL 2.0 MG/DL (1.8-2.4); PHOSPHORUS LEVEL 1.8 MG/DL (2.4-5.1); POTASSIUM SERUM 3.8 MMOL/L (3.5-5.1); SODIUM LEVEL 135.0 MMOL/L (136-145)
[2025-07-09] MEDS ORDERED: PILL CUTTER 1 EACH XX PRN (06:30)
[2025-07-09] MEDS: K-PHOS ORIGINAL (POT.ACID PHOSPHATE) 500 MG TAB PO SCH (06:35)
[2025-07-09] MEDS: cefTRIAXone SOD 1 GM in DEXTROSE 5% (D5W) ADV/MINI-BAG 50 ML IV SCH (14:17)
[2025-07-09] MEDS: POTASSIUM PHOSPHATE INJ 20 MMOL in D5W 250 ML IV ONE (16:20)
[2025-07-09] MEDS: LanTUS (INSULIN GLARGINE INJ) 1 UNITS/0.01 ML SC SCH (20:17)
[2025-07-10 03:38] VITALS: BP 136/69; TEMP 97.1; O2SAT 100
[2025-07-10 06:48] LABS: CALCIUM LEVEL 8.3 MG/DL (8.3-10.6); CARBON DIOXIDE LEVEL 28 MMOL/L (20-31); CHLORIDE LEVEL 104 MMOL/L (98-107); CREATININE FOR GFR 0.73 MG/DL (0.55-1.30); GLOMERULAR FILTRATION RATE > 90.0 (>45); MAGNESIUM LEVEL 1.8 MG/DL (1.8-2.4); PHOSPHORUS LEVEL 2.0 MG/DL (2.4-5.1); POTASSIUM SERUM 4.2 MMOL/L (3.5-5.1); SODIUM LEVEL 139 MMOL/L (136-145)
[2025-07-10 06:49] LABS: BASO # 0.1 10^3/uL (0.0-0.2); BASO % 0.8 % (0.0-1.0); EOS # 0.1 10^3/uL (0.0-0.5); EOS % 0.9 % (0.0-3.0); LYMPH # 1.5 10^3/uL (1.5-5.0); LYMPH % 24.1 % (24.0-44.0); MONO # 0.7 10^3/uL (0.0-0.8); MONO % 10.5 % (2.0-8.0); NEUTROPHILS # 4.1 10^3/uL (1.5-8.5); NEUTROPHILS % 63.2 % (36.0-66.0); PLATELET COUNT, AUTOMATED 125 10^3/uL (150-450)
[2025-07-10 07:43] VITALS: BP 159/75; TEMP 97; O2SAT 100
[2025-07-10] MEDS: MAG SULF 1GM/100ML (MAG RUN) 1 GM in IV 1 EA IV ONE (09:22)
[2025-07-10 11:46] VITALS: BP 148/72; TEMP 97.2; O2SAT 98
[2025-07-10] MEDS: POTASSIUM PHOSPHATE INJ 30 MMOL in D5W 500 ML IV ONE (11:53)
[2025-07-10] MEDS: ISOSORBIDE MONONITRATE 60 MG XR TAB PO SCH (11:58)
[2025-07-10] MEDS: ENTRESTO 24-26 MG TABLET (SACUBITRIL/VALSARTAN) PO ONE (11:58)
[2025-07-10 16:04] VITALS: BP 119/56; TEMP 97.7; O2SAT 97
[2025-07-10 20:03] VITALS: BP 129/60; TEMP 98.3; O2SAT 100
[2025-07-10] MEDS: LanTUS (INSULIN GLARGINE INJ) 1 UNITS/0.01 ML SC SCH (20:36)
[2025-07-10] MEDS: ENTRESTO 24-26 MG TABLET (SACUBITRIL/VALSARTAN) PO SCH (20:37)
[2025-07-10] MEDS: RANOLAZINE 500MG ER TAB PO SCH (20:37)
[2025-07-10 23:37] VITALS: BP 110/53; TEMP 98.1; O2SAT 93
[2025-07-11] VITALS (8 sets, daily range): BP systolic 104–159; BP diastolic 52–73; TEMP 97–97.8; O2SAT 95–98
[2025-07-11 06:10] LABS: PLATELET COUNT, AUTOMATED 161 10^3/uL (150-450)
[2025-07-11 06:39] LABS: CALCIUM LEVEL 8.5 MG/DL (8.3-10.6); CARBON DIOXIDE LEVEL 27 MMOL/L (20-31); CHLORIDE LEVEL 105 MMOL/L (98-107); CREATININE FOR GFR 0.74 MG/DL (0.55-1.30); GLOMERULAR FILTRATION RATE > 90.0 (>45); MAGNESIUM LEVEL 1.7 MG/DL (1.8-2.4); PHOSPHORUS LEVEL 2.5 MG/DL (2.4-5.1); POTASSIUM SERUM 4.8 MMOL/L (3.5-5.1); SODIUM LEVEL 139 MMOL/L (136-145)
[2025-07-11 07:10] LABS: ATYPICAL LYMPH 3 % (0-5); BASOPHILS 1 % (0-1); EOSINOPHILS 1 % (0-3); LYMPHOCYTES 34 % (16-44); MONOCYTES 2 % (0-5); NEUTROPHILS 58 % (28-66)
[2025-07-11 07:11] LABS: PLATELET ESTIMATE NORMAL (NORMAL)
[2025-07-11] MEDS: MAG SULF 1GM/100ML (MAG RUN) 1 GM in IV 1 EA IV SCH (08:19)
[2025-07-11] MEDS: MIRALAX *UNIT DOSE* 17 GM PACKET PO PRN (08:24)
[2025-07-11] MEDS: FLUCONAZOLE 50 MG TABLET PO ONE (19:55)
[2025-07-12 03:34] VITALS: BP 144/74; TEMP 98.3; O2SAT 97
[2025-07-12] MEDS: MAG SULF 1GM/100ML (MAG RUN) 1 GM in IV 1 EA IV SCH (06:39)
[2025-07-12 08:00] VITALS: BP 180/82; TEMP 97.2; O2SAT 96
[2025-07-12] MEDS ORDERED: MICONAZOLE-7 VAGINAL 2% CREAM 47.7 GM PV SCH (09:00)
[2025-07-12 12:00] VITALS: BP 159/81; TEMP 97.3; O2SAT 96
[2025-07-12] MEDS: ENTRESTO 24-26 MG TABLET (SACUBITRIL/VALSARTAN) PO ONE (12:45)
[2025-07-12] MEDS ORDERED: FLUC150T9 PO (13:16)
[2025-07-12] MEDS ORDERED: ELIQ5TAB PO (13:16)
== END 2025-07-12 15:45 | disposition home or self-care (01) | DRG 720 ==
LOC: EDBD 15:41 → M ED 15:41 → M ED INP 19:17 → M ICU 20:21 → M PCU 07-09 18:00
PROVIDERS: ADMIT Internal Medicine; ATTEND Student in an Organized Health Care Education/Training Program
DX: A41.51 Sepsis due to Escherichia coli [E. coli] (principal); R65.21 Severe sepsis with septic shock; N17.9 Acute kidney failure, unspecified; E11.51 Type 2 diabetes mellitus with diabetic peripheral angiopathy without gangrene; I11.0 Hypertensive heart disease with heart failure; I50.22 Chronic systolic (congestive) heart failure; I48.0 Paroxysmal atrial fibrillation; E78.5 Hyperlipidemia, unspecified; I25.5 Ischemic cardiomyopathy; N39.0 Urinary tract infection, site not specified; Z79.899 Other long term (current) drug therapy; Z79.4 Long term (current) use of insulin; Z95.2 Presence of prosthetic heart valve; I25.10 Atherosclerotic heart disease of native coronary artery without angina pectoris; Z88.8 Allergy status to other drugs, medicaments and biological substances